=== PATIENT | male | born 1995 | race African-American/Black ===

== ENCOUNTER 2017-05-25 15:41 | Emergency (ER) | payer SELFPAY ==
[~2017-05-25] VITALS: Ht 175.3 cm; Wt 63.5 kg
[~2017-05-25 15:41] MED LIST: DOCU-109 PO; Hydrocodone Bit/Acetaminophen PO
[2017-05-25 15:48] VITALS: BP 129/78
--- NOTE | 2017-05-25 16:55 | PHYS DOC ---
Past Medical History Past Medical History: Abscess Past Surgical History: Other Additional Past Surgical Histo: pilonidal cyst Alcohol Use: None Drug Use: None Adult General Chief Complaint Chief Complaint: ABDOMINAL PAIN HPI HPI Patient is a 21 year old male who presents ambulatory to the ED complaining of intermittent abdominal pain for 2 days. It's characterized as a "sharp stabbing pain" that may be on the right middle, right upper, middle, or left side of the abdomen. It will go away and then come back. It has bothered him in the middle the night last night. He did have a small bowel movement yesterday that was hard. He states "it's, like a gas pain" but worse. He's had no nausea or vomiting. 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 He denies history of constipation. He's never had abdominal surgery. He denies fever. Patient is in good general health and does not take medications daily. Review of Systems Review of Systems Constitutional: Denies fever or chills [] Eyes: Denies change in visual acuity, redness, or eye pain [] HENT: Denies nasal congestion or sore throat [] Respiratory: Denies cough or shortness of breath [] Cardiovascular: Denies chest pain GI: As in history of present illness : Denies dysuria or hematuria [] Musculoskeletal: Denies back pain or joint pain [] Integument: Denies rash or skin lesions [] Neurologic: Denies headache, focal weakness or sensory changes [] Current Medications Current Medications Current Medications Medications (Trade) Dose Ordered Sig/Kaushik Start Time Stop Time Status Last Admin Dose Admin Magnesium Citrate (Citroma) 296 ml 1X ONCE 05/25/17 17:00 05/25/17 17:01 DC 05/25/17 16:59 296 ML Allergies Allergies Allergies Coded Allergies Type Severity Reaction Last Updated Verified No Known Drug Allergies 06/10/14 No Physical Exam Physical Exam Constitutional: Well developed, well nourished, no acute distress, non-toxic appearance. Alert, ambulatory, mentating normally, no acute distress. HENT: Normocephalic, atraumatic, bilateral external ears normal, oropharynx moist, nose normal. [] Eyes: conjunctiva normal, no discharge. [] Neck: Normal range of motion, no stridor. [] Cardiovascular:Heart rate regular rhythm, no murmur [] Lungs & Thorax: Bilateral breath sounds clear to auscultation [] Abdomen: Bowel sounds normal to "busy", increased tympany throughout, soft, nondistended, no tenderness, no masses, no pulsatile masses. Abdomen exam entirely benign. Skin: Warm, dry, no erythema, no rash. [] Extremities: No tenderness, no cyanosis, no clubbing, ROM intact, no edema. [] Neurologic: Alert and oriented X 3, normal motor function, normal sensory function, no focal deficits noted. [] Current Patient Data Vital Signs Vital Signs Date Time Temp Pulse Resp B/P (MAP) Pulse Ox O2 Delivery O2 Flow Rate FiO2 05/25/17 15:48 98.5 66 18 129/78 (95) 100 Room Air 98.5 EKG EKG [] Radiology/Procedures Radiology/Procedures Abdomen flat and upright films read by me. Nonspecific normal bowel gas pattern. There is stool and gas scattered throughout, with gas in the transverse colon [] Course & Med Decision Making Course & Med Decision Making Pertinent Labs and Imaging studies reviewed. (See chart for details) 21-year-old male complaining of intermittent sharp abdominal pain for 2 days. His abdomen exam is entirely benign. The patient has not had abdominal surgery in the past. His pain is intermittent, when it comes is severe, but when it goes is gone completely. I believe it's consistent with "gas pains". Discussed this with the patient. He states that he does believe he is constipated, he does not eat enough fiber, his stools are hard and sometimes small in quantity. We talked about fiber. We will treat him with a dose of magnesium citrate. See instructions for plan. [] Dragon Disclaimer Dragon Disclaimer This electronic medical record was generated, in whole or in part, using a voice recognition dictation system. Departure Departure Impression: Primary Impression: Gas pain Additional Impression: Constipation Disposition: 01 HOME, SELF-CARE Condition: STABLE Referrals: UNKNOWN PCP NAME (PCP) Patient Instructions: Constipation, Adult, [id number] Additional Instructions: I believe your pains are "gas pains" which results from gas in your colon when you are constipated. Constipation can be from not drinking enough fluids or not eating enough fiber. Try eating fiber cereal like raisin bran or frosted Mini- wheats once a day for breakfast or snack. Drink one half bottle of magnesium citrate now, and if you have not had good "results" within 4-6 hours, drink the second half of the bottle. This is a laxative which should make you have a bowel movement. You may purchase this over -the-counter and use as needed but it's better to avoid constipation by eating fiber every day. Problem Qualifiers TC VALENZUELA MD May 25, 2017 16:55
[2017-05-25] MEDS ORDERED: MAGNESIUM CITRATE 296 ML SOLUTION. PO ONE (17:00)
--- NOTE | 2017-05-26 09:01 | RAD ---
Indication abdominal pain for 2 days. Supine and upright films of the abdomen were obtained. No prior plain film imaging of the abdomen is available. Note is made of a previous CT examination November 02, 2012. The lung bases are clear. There is no free air. The abdominal gas pattern is normal. No organomegaly or abnormal calculi are seen. IMPRESSION: No acute or significant finding seen on plain films of the abdomen
== END 2017-05-25 17:03 | disposition home or self-care (01) ==
LOC: ER 15:41
DX: R14.1 Gas pain (principal); K59.00 Constipation, unspecified
CPT/HCPCS: 74020; 99284

== ENCOUNTER 2017-09-06 06:05 | Emergency (ER) | payer SELFPAY ==
[~2017-09-06] VITALS: Ht 172.7 cm; Wt 63.5 kg
[2017-09-06 06:06] VITALS: BP 128/77
--- NOTE | 2017-09-06 07:43 | PHYS DOC ---
Past Medical History Past Medical History: Abscess Past Surgical History: Other Additional Past Surgical Histo: pilonidal cyst Alcohol Use: None Drug Use: Marijuana Adult General Chief Complaint Chief Complaint: OVERDOSE HPI HPI Patient is a 21 year old -[place] male who presents by EMS with reports of altered mental status and suspected drug overdose. Patient's significant other called EMS after he is confused and found with red liquid over his shirt. EMS arrival, the patient was alert, oriented but uncooperative. On ED arrival, the patient's alert and oriented to person place time and situation, but does not wish to cooperate with exam and declines evaluation in the emergency department. Denies any attempted overdose. Patient requests discharge without further evaluation[] Review of Systems Review of Systems Review of systems declined by patient All other systems were reviewed and found to be within normal limits, except as documented in this note. Allergies Allergies Allergies Coded Allergies Type Severity Reaction Last Updated Verified No Known Drug Allergies 06/10/14 No Physical Exam Physical Exam Constitutional: Well developed, well nourished, no acute distress, non-toxic appearance. [] HENT: Normocephalic, atraumatic, bilateral external ears normal, oropharynx moist, no oral exudates, nose normal. [] Eyes: PERRL.. [] Neck: Normal range of motion. Lungs & Thorax: Breath sounds normal[] lubbing, ROM intact, no edema. [] Neurologic: Alert and oriented X 3, normal motor function, normal sensory function, no focal deficits noted. [] Psychologic: Affect normal, judgement normal, mood normal. [] Current Patient Data Vital Signs Vital Signs Date Time Temp Pulse Resp B/P (MAP) Pulse Ox O2 Delivery O2 Flow Rate FiO2 09/06/17 06:06 98.0 112 20 128/77 (94) 97 Room Air 98.0 Lab Values Laboratory Tests Test 09/06/17 06:19 Glucose (Fingerstick) 142 mg/dL (70-99) H EKG EKG [] Radiology/Procedures Radiology/Procedures [] Course & Med Decision Making Course & Med Decision Making Pertinent Labs and Imaging studies reviewed. (See chart for details) [Patient declined evaluation. No workup was performed or diagnosis made. Patient encouraged to follow-up with his PCP and to return to the ED should he change his mind regarding evaluation. Patient left AGAINST MEDICAL ADVICE..] Dragon Disclaimer Dragon Disclaimer This electronic medical record was generated, in whole or in part, using a voice recognition dictation system. Departure Departure Impression: Primary Impression: Left against medical advice Disposition: 07 AGAINST MEDICAL ADVICE Condition: LEFT WITHOUT BEING SEEN Referrals: NO PCP (PCP) LONNIE VILLALPANDO DO Sep 06, 2017 07:43
== END 2017-09-06 06:20 | disposition left against medical advice (07) ==
LOC: ER 06:05
DX: R41.82 Altered mental status, unspecified (principal); F12.10 Cannabis abuse, uncomplicated
CPT/HCPCS: 82962; 99283

== ENCOUNTER 2018-10-02 03:06 | Emergency (ER) | payer SELFPAY ==
[~2018-10-02] VITALS: Ht 177.8 cm; Wt 63.5 kg
[2018-10-02] MEDS ORDERED: METOCLOPRAMIDE HCL 10 MG/2 ML VIAL. IV ONE (03:45)
[2018-10-02] MEDS ORDERED: HYOSCYAMINE 0.125 MG TAB.RAPDIS PO ONE (03:45)
[2018-10-02 03:48] LABS: BILIRUBIN,URINE NEGATIVE (NEG); CLARITY,URINE CLEAR; COLOR,URINE YELLOW; NITRITE,URINE NEGATIVE (NEG); PH,URINE 7.5; PROTEIN,URINE NEGATIVE (NEG-TRACE)
[2018-10-02 03:53] LABS: BARBITURATES NEG (NEG); BENZODIAZEPINES NEG (NEG); CANNABINOIDS POS (NEG); COCAINE NEG (NEG); METHADONE NEG (NEG); OPIATES POS (NEG); PHENCYCLIDINE NEG (NEG)
[2018-10-02 03:55] LABS: BACTERIA,URINE 0 /HPF (0-FEW); RBC,URINE OCC /HPF (0-2); SQUAMOUS EPITHELIAL CELL,UR FEW /LPF
[2018-10-02 03:56] LABS: AMPHETAMINE/METHAMPHETAMINE NEG (NEG)
[2018-10-02 04:09] LABS: BASO # 0.1 x10^3/uL (0.0-0.2); BASO % 1 % (0-3); EOS # 0.1 x10^3/uL (0.0-0.7); EOS % 1 % (0-3); HEMATOCRIT 45.1 % (39.0-53.0); HEMOGLOBIN 15.7 g/dL (13.0-17.5); LYMPH % 26 % (24-48); MEAN CORPUSCULAR HEMOGLOBIN 34 pg (25-35); MEAN CORPUSCULAR HGB CONC 35 g/dL (31-37); MEAN CORPUSCULAR VOLUME 97 fL (79-100); MONO # 0.3 x10^3/uL (0.0-1.1); MONO % 4 % (0-9); NEUT # 5.2 x10^3uL (1.8-7.7); NEUT % 69 % (31-73); PLATELET COUNT 254 x10^3/uL (140-400); RED BLOOD COUNT 4.66 x10^6/uL (4.30-5.70); RED CELL DISTRIBUTION WIDTH 13.6 % (11.5-14.5); WHITE BLOOD COUNT 7.6 x10^3/uL (4.0-11.0)
--- NOTE | 2018-10-02 04:10 | PHYS DOC ---
Past Medical History Past Medical History: Abscess Past Surgical History: Other Additional Past Surgical Histo: pilonidal cyst Alcohol Use: None Drug Use: Marijuana Adult General Chief Complaint Chief Complaint: ABDOMINAL PAIN HPI HPI Patient is a 22 year old male who presents with abdominal pain. This has been present for the past 2-3 days. He describes it as achy and crampy discomfort that is moderate in intensity. Patient reports nausea and vomiting. Reports that any food causes nausea and vomiting. He is able to hold down liquids. Reports his last bowel movement was 2-3 days ago as well. He reports that he is passing flatus. Reports that the pain is diffuse. Nothing seems to make it better or worse. Reports the last used marijuana 3-4 days ago.[] Review of Systems Review of Systems Constitutional: Denies fever or chills [] Eyes: Denies change in visual acuity, redness, or eye pain [] HENT: Denies nasal congestion or sore throat [] Respiratory: Denies cough or shortness of breath [] Cardiovascular: No chest pain or palpitations[] GI: See history of present illness[] : Denies dysuria or hematuria [] Musculoskeletal: Denies back pain or joint pain [] Integument: Denies rash or skin lesions [] Neurologic: Denies headache, focal weakness or sensory changes [] Endocrine: Denies polyuria or polydipsia [] All other systems were reviewed and found to be within normal limits, except as documented in this note. Current Medications Current Medications Current Medications Medications (Trade) Dose Ordered Sig/Kaushik Start Time Stop Time Status Last Admin Dose Admin Hyoscyamine (Anaspaz) 0.125 mg ONCE ONCE 10/02/18 03:45 10/02/18 03:46 DC 10/02/18 04:05 0.125 MG Metoclopramide HCl (Reglan Vial) 10 mg 1X ONCE 10/02/18 03:45 10/02/18 03:46 DC 10/02/18 04:05 10 MG Allergies Allergies Allergies Coded Allergies Type Severity Reaction Last Updated Verified No Known Drug Allergies 06/10/14 No Physical Exam Physical Exam Constitutional: Well developed, well nourished, no acute distress, non-toxic appearance. [] HENT: Normocephalic, atraumatic, bilateral external ears normal, oropharynx moist, no oral exudates, nose normal. [] Eyes: PERRLA, EOMI, conjunctiva normal, no discharge. [] Neck: Normal range of motion, no tenderness, supple, no stridor. [] Cardiovascular:Heart rate regular rhythm, no murmur [] Lungs & Thorax: Bilateral breath sounds clear to auscultation [] Abdomen: Bowel sounds normal, soft, diffuse tenderness, no masses, no pulsatile masses. No rebound, no guarding, no rigidity. Patient is able to sit up without any difficulty. No McBurney's point tenderness[] Skin: Warm, dry, no erythema, no rash. [] Back: No tenderness, no CVA tenderness. [] Extremities: No tenderness, no cyanosis, no clubbing, ROM intact, no edema. [] Neurologic: Alert and oriented X 3, normal motor function, normal sensory function, no focal deficits noted. [] Psychologic: Affect normal, judgement normal, mood normal. [] Current Patient Data Vital Signs Vital Signs Date Time Temp Pulse Resp B/P (MAP) Pulse Ox O2 Delivery O2 Flow Rate FiO2 10/02/18 03:17 98.0 59 14 103/61 (75) 99 Room Air 98.0 Lab Values Laboratory Tests Test 10/02/18 03:20 10/02/18 04:00 Urine Collection Type Unknown Urine Color Yellow Urine Clarity Clear Urine pH 7.5 Urine Specific [place] 1.020 Urine Protein Negative mg/dL (NEG-TRACE) Urine Glucose (UA) Negative mg/dL (NEG) Urine Ketones (Stick) 40 mg/dL (NEG) Urine Blood Negative (NEG) Urine Nitrite Negative (NEG) Urine Bilirubin Negative (NEG) Urine Urobilinogen Dipstick 1.0 mg/dL (0.2 mg/dL) Urine Leukocyte Esterase Moderate (NEG) Urine RBC Occ /HPF (0-2) Urine WBC 11-20 /HPF (0-4) Urine Squamous Epithelial Cells Few /LPF Urine Bacteria 0 /HPF (0-FEW) Urine Mucus Mod /LPF Urine Opiates Screen Pos (NEG) Urine Methadone Screen Neg (NEG) Urine Barbiturates Neg (NEG) Urine Phencyclidine Screen Neg (NEG) Urine Amphetamine/Methamphetamine Neg (NEG) Urine Benzodiazepines Screen Neg (NEG) Urine Cocaine Screen Neg (NEG) Urine Cannabinoids Screen Pos (NEG) Urine Ethyl Alcohol Neg (NEG) White Blood Count 7.6 x10^3/uL (4.0-11.0) Red Blood Count 4.66 x10^6/uL (4.30-5.70) Hemoglobin 15.7 g/dL (13.0-17.5) Hematocrit 45.1 % (39.0-53.0) Mean Corpuscular Volume 97 fL (79-100) Mean Corpuscular Hemoglobin 34 pg (25-35) Mean Corpuscular Hemoglobin Concent 35 g/dL (31-37) Red Cell Distribution Width 13.6 % (11.5-14.5) Platelet Count 254 x10^3/uL (140-400) Neutrophils (%) (Auto) 69 % (31-73) Lymphocytes (%) (Auto) 26 % (24-48) Monocytes (%) (Auto) 4 % (0-9) Eosinophils (%) (Auto) 1 % (0-3) Basophils (%) (Auto) 1 % (0-3) Neutrophils # (Auto) 5.2 x10^3uL (1.8-7.7) Lymphocytes # (Auto) 2.0 x10^3/uL (1.0-4.8) Monocytes # (Auto) 0.3 x10^3/uL (0.0-1.1) Eosinophils # (Auto) 0.1 x10^3/uL (0.0-0.7) Basophils # (Auto) 0.1 x10^3/uL (0.0-0.2) Sodium Level 139 mmol/L (136-145) Potassium Level 3.5 mmol/L (3.5-5.1) Chloride Level 106 mmol/L (98-107) Carbon Dioxide Level 22 mmol/L (21-32) Anion Gap 11 (6-14) Blood Urea Nitrogen 7 mg/dL (8-26) L Creatinine 1.1 mg/dL (0.7-1.3) Estimated GFR (Cockcroft-Gault) 101.3 BUN/Creatinine Ratio 6 (6-20) Glucose Level 104 mg/dL (70-99) H Calcium Level 9.5 mg/dL (8.5-10.1) Total Bilirubin 0.8 mg/dL (0.2-1.0) Aspartate Amino Transferase (AST) 19 U/L (15-37) Alanine Aminotransferase (ALT) 21 U/L (16-63) Alkaline Phosphatase 80 U/L (46-116) Total Protein 7.3 g/dL (6.4-8.2) Albumin 4.2 g/dL (3.4-5.0) Albumin/Globulin Ratio 1.4 (1.0-1.7) Lipase 133 U/L (73-393) Laboratory Tests 10/02/18 04:00 Laboratory Tests 10/02/18 04:00 EKG EKG [] Radiology/Procedures Radiology/Procedures Acute abdominal series x-ray shows no infiltrate, no effusion, no pneumothorax, no subdiaphragmatic free air, no evidence of obstruction[] Course & Med Decision Making Course & Med Decision Making Pertinent Labs and Imaging studies reviewed. (See chart for details) ED course: Patient arrived, was placed in bed, and tolerated exam well. Patient was by mouth tolerant while in the emergency department. After return of lab and imaging findings, these were discussed with the patient voiced understanding. All questions were answered Cold decision making: There is no evidence of obstruction or perforation. Patient does not clinically present as appendicitis, has a normal white count despite 2 days of discomfort and no McBurney's point tenderness and no peritoneal findings. No evidence of pyelonephritis. Patient has urinary tract infection which will be treated as an outpatient. This may be due to a combination of opioid as well as THC use resulting in the nausea and vomiting along with the decreased bowel movements. We'll have patient increase fiber in his diet and addressed the nausea with antiemetics.[] Dragon Disclaimer Dragon Disclaimer This electronic medical record was generated, in whole or in part, using a voice recognition dictation system. Departure Departure Impression: Primary Impression: Nausea and vomiting Additional Impressions: Abdominal pain Urinary tract infection Disposition: HOME, SELF-CARE Condition: GOOD Referrals: NO PCP (PCP) Patient Instructions: Abdominal Pain (Nonspecific), Nausea and Vomiting, Urinary Tract Infection Additional Instructions: Drink plenty of fluids. Avoid fatty foods, milk, and pepper for the next 2 days. For the next 2 days eat a diet rich in carbohydrates with foods such as bananas, rice, applesauce, and toast. Follow-up with your regular doctor in 2 days. If you do not have a regular doctor a list of local low-cost clinics will be provided for you. When you are feeling better, increase the fiber in your diet. This can be done by adding a breakfast cereal with "bran" or "fiber" in the name. Return to the ER if worsening pain, unable to tolerate liquids, or any other concerns. Scripts Metoclopramide Hcl (REGLAN) 10 Mg Tablet 10 MG PO QIDACHS, #30 TAB 0 Refills Prov: JEAN MENA DO 10/02/18 Hyoscyamine Sulfate (LEVSIN) 0.125 Mg Tablet 0.125 MG PO QID, #30 TAB Prov: JEAN MENA DO 10/02/18 Cephalexin (CEPHALEXIN) 500 Mg Tablet 1 TAB PO TID, #30 TAB Prov: JEAN MENA DO 10/02/18 Problem Qualifiers Primary Impression: Nausea and vomiting Vomiting type: unspecified Vomiting Intractability: non-intractable Qualified Codes: R11.2 - Nausea with vomiting, unspecified Additional Impressions: Abdominal pain Abdominal location: generalized Qualified Codes: R10.84 - Generalized abdominal pain Urinary tract infection Urinary tract infection type: site unspecified Hematuria presence: without hematuria Qualified Codes: N39.0 - Urinary tract infection, site not specified JEAN MENA DO Oct 02, 2018 04:10
[2018-10-02 04:18] LABS: CALCIUM 9.5 mg/dL (8.5-10.1); CREATININE 1.1 mg/dL (0.7-1.3); GFR 101.3; POTASSIUM 3.5 mmol/L (3.5-5.1)
[2018-10-02 04:23] LABS: ALBUMIN 4.2 g/dL (3.4-5.0); ALBUMIN/GLOBULIN RATIO 1.4 (1.0-1.7); TOTAL BILIRUBIN 0.8 mg/dL (0.2-1.0); TOTAL PROTEIN 7.3 g/dL (6.4-8.2)
[2018-10-02] MEDS ORDERED: CEPH500T PO (04:52)
[2018-10-02] MEDS ORDERED: METO10TA81 PO (04:52)
[2018-10-02] MEDS ORDERED: HYOS0.1264 PO (04:52)
[2018-10-02 05:00] VITALS: BP 103/62
--- NOTE | 2018-10-02 08:16 | RAD ---
ACUTE ABDOMEN SERIES History: Vomiting, abdominal pain. Comparison: KUB, May 25, 2017. Findings: Frontal chest and supine and upright views of the abdomen. Cardiomediastinal silhouette is normal. There is no pleural effusion or pneumothorax. The lungs are clear. No pneumoperitoneum is identified. No dilated air-filled loops of bowel are seen. Bowel gas pattern is nonobstructive. No organomegaly. Bones unremarkable. IMPRESSION: 1. No acute cardiopulmonary process. 2. Nonobstructive bowel gas pattern. Electronically signed by: Asim Honeycutt MD (10/02/2018 8:12 AM) [id number]
== END 2018-10-02 05:08 | disposition home or self-care (01) ==
LOC: ER 03:06
DX: N39.0 Urinary tract infection, site not specified (principal); R11.2 Nausea with vomiting, unspecified; R10.84 Generalized abdominal pain
CPT/HCPCS: 36415; 74022; 80053; 80307; 81001; 83690; 85025; 87086; 96374; 99284; J2765

== ENCOUNTER 2020-12-27 10:18 | Emergency (ER) | payer SELFPAY ==
[~2020-12-27] VITALS: Ht 177.8 cm; Wt 65.0 kg
[~2020-12-27 10:18] MED LIST changes: +CEPH500T PO; +HYOS0.1264 PO; +METO10TA81 PO
[2020-12-27] MEDS ORDERED: ONDANSETRON PF 4 MG/2 ML VIAL. IVP ONE (10:45)
[2020-12-27] MEDS ORDERED: IV NORMAL SALINE 1000ML BAG 1,000 ML IV ONE ×3 (10:45→12:30)
--- NOTE | 2020-12-27 10:48 | PHYS DOC ---
Past Medical History Past Medical History: No Pertinent History Past Surgical History: Other Additional Past Surgical Histo: pilonidal cyst Smoking Status: Former Smoker Alcohol Use: None Drug Use: Marijuana General Adult EDM: Chief Complaint: NAUSEA/VOMITING/DIARRHA HPI: HPI: Patient is a 25 year old male who presented to ER due to nausea vomiting and abdominal cramping. Patient said he is in withdrawal from cough syrup that includes codeine. His last dose was 2 days ago. Patient denies suicidal ideation, denies homicidal ideation. Patient denies any chest pain, no trouble breathing. Patient denies any cough or fever. Patient also admitted marijuana usage. Review of Systems: Review of Systems: Constitutional: Denies fever or chills. [] Eyes: Denies change in visual acuity. [] HENT: Denies nasal congestion or sore throat. [] Respiratory: Denies cough or shortness of breath. [] Cardiovascular: Denies chest pain or edema. [] GI: Positive for abdominal cramping, nausea vomiting, no diarrhea. : Denies dysuria. [] Musculoskeletal: Denies back pain or joint pain. [] Integument: Denies rash. [] Neurologic: Denies headache, focal weakness or sensory changes. [] Endocrine: Denies polyuria or polydipsia. [] Lymphatic: Denies swollen glands. [] Psychiatric: Denies depression or anxiety. No suicidal ideation, no homicide ideation. Heart Score: C/O Chest Pain: N/A Risk Factors: Risk Factors: DM, Current or recent (<one month) smoker, HTN, HLP, family history of CAD, obesity. Risk Scores: Score 0 - 3: 2.5% MACE over next 6 weeks - Discharge Home Score 4 - 6: 20.3% MACE over next 6 weeks - Admit for Clinical Observation Score 7 - 10: 72.7% MACE over next 6 weeks - Early Invasive Strategies Current Medications: Current Medications Medications (Trade) Dose Ordered Sig/Kaushik Start Time Stop Time Status Last Admin Dose Admin Ondansetron HCl (Zofran) 4 mg 1X ONCE 12/27/20 10:45 12/27/20 10:46 DC Sodium Chloride 1,000 ml @ 1,000 mls/hr 1X ONCE 12/27/20 10:45 12/27/20 11:44 Allergies: Allergies: Allergies Coded Allergies Type Severity Reaction Last Updated Verified No Known Drug Allergies 06/10/14 No Physical Exam: PE: Constitutional: Well developed, well nourished, no acute distress, non-toxic appearance. [] HENT: Normocephalic, atraumatic, bilateral external ears normal, oropharynx moist, no oral exudates, nose normal. [] Eyes: PERRLA, EOMI, conjunctiva normal, no discharge. [] Neck: Normal range of motion, no tenderness, supple, no stridor. [] Cardiovascular:Heart rate regular rhythm, no murmur [] Lungs & Thorax: Bilateral breath sounds clear to auscultation [] Abdomen: Bowel sounds normal, soft, no tenderness, no masses, no pulsatile masses. [] Skin: Warm, dry, no erythema, no rash. [] Back: No tenderness, no CVA tenderness. [] Extremities: No tenderness, no cyanosis, no clubbing, ROM intact, no edema. [] Neurologic: Alert and oriented X 3, normal motor function, normal sensory function, no focal deficits noted. [] Psychologic: Affect normal, judgement normal, mood normal. [] Current Patient Data: Labs: Laboratory Tests Test 12/27/20 10:47 12/27/20 11:40 White Blood Count 6.9 x10^3/uL Red Blood Count 4.95 x10^6/uL Hemoglobin 16.5 g/dL Hematocrit 47.8 % Mean Corpuscular Volume 97 fL Mean Corpuscular Hemoglobin 33 pg Mean Corpuscular Hemoglobin Concent 35 g/dL Red Cell Distribution Width 13.6 % Platelet Count 309 x10^3/uL Neutrophils (%) (Auto) 79 % Lymphocytes (%) (Auto) 15 % Monocytes (%) (Auto) 5 % Eosinophils (%) (Auto) 0 % Basophils (%) (Auto) 1 % Neutrophils # (Auto) 5.5 x10^3/uL Lymphocytes # (Auto) 1.0 x10^3/uL Monocytes # (Auto) 0.3 x10^3/uL Eosinophils # (Auto) 0.0 x10^3/uL Basophils # (Auto) 0.1 x10^3/uL Sodium Level 138 mmol/L Potassium Level 3.2 mmol/L Chloride Level 103 mmol/L Carbon Dioxide Level 22 mmol/L Anion Gap 13 Blood Urea Nitrogen 7 mg/dL Creatinine 1.3 mg/dL Estimated GFR (Cockcroft-Gault) 81.4 BUN/Creatinine Ratio 5 Glucose Level 145 mg/dL Calcium Level 9.6 mg/dL Magnesium Level 1.7 mg/dL Total Bilirubin 1.0 mg/dL Aspartate Amino Transf (AST/SGOT) 18 U/L Alanine Aminotransferase (ALT/SGPT) 18 U/L Alkaline Phosphatase 89 U/L Total Protein 7.9 g/dL Albumin 4.2 g/dL Albumin/Globulin Ratio 1.1 Lipase 74 U/L Salicylates Level 3.7 mg/dL Salicylate Last Dose Date Unknown Salicylate Last Dose Time Unknown Acetaminophen Level < 2 mcg/ml Acetaminophen Last Dose Date Unknown Acetaminophen Last Dose Time Unknown Ethyl Alcohol Level < 10 mg/dL Urine Collection Type Void Urine Color Yellow Urine Clarity Cloudy Urine pH 8.5 Urine Specific [place] 1.025 Urine Protein 30 mg/dL Urine Glucose (UA) Negative mg/dL Urine Ketones (Stick) >=80 mg/dL Urine Blood Negative Urine Nitrite Negative Urine Bilirubin Negative Urine Urobilinogen Dipstick 0.2 mg/dL Urine Leukocyte Esterase Small Urine RBC 0 /HPF Urine WBC 5-10 /HPF Urine Squamous Epithelial Cells Few /LPF Urine Bacteria Few /HPF Urine Mucus Mod /LPF Urine Opiates Screen Pos Urine Methadone Screen Neg Urine Barbiturates Neg Urine Phencyclidine Screen Neg Urine Amphetamine/Methamphetamine Neg Urine Benzodiazepines Screen Neg Urine Cocaine Screen Neg Urine Cannabinoids Screen Pos Urine Ethyl Alcohol Neg Current Medications Medications (Trade) Dose Ordered Sig/Kaushik Route PRN Reason Start Time Stop Time Status Last Admin Dose Admin Ondansetron HCl (Zofran) 4 mg 1X ONCE IVP 12/27/20 10:45 12/27/20 10:46 DC 12/27/20 10:51 Sodium Chloride 1,000 ml @ 1,000 mls/hr 1X ONCE IV 12/27/20 10:45 12/27/20 11:44 DC 12/27/20 10:51 Sodium Chloride 1,000 ml @ 1,000 mls/hr 1X ONCE IV 12/27/20 10:45 12/27/20 11:44 DC 12/27/20 10:51 Potassium Chloride (Klor-Con) 40 meq 1X ONCE PO 12/27/20 11:45 12/27/20 11:46 DC 12/27/20 12:37 Magnesium Sulfate 50 ml @ 25 mls/hr 1X ONCE IV 12/27/20 11:45 12/27/20 13:44 DC 12/27/20 12:36 Sodium Chloride 1,000 ml @ 1,000 mls/hr 1X ONCE IV 12/27/20 12:30 12/27/20 13:29 DC 12/27/20 12:42 Vital Signs: Vital Signs Date Time Temp Pulse Resp B/P (MAP) Pulse Ox O2 Delivery O2 Flow Rate FiO2 12/27/20 10:25 97.8 47 16 111/55 (73) 99 Room Air 97.8 EKG: EKG: [] Radiology/Procedures: Radiology/Procedures: [] Course & Med Decision Making: Course & Med Decision Making Pertinent Labs and Imaging studies reviewed. (See chart for details) Patient is a 25-year-old male who presented to ER due to nausea vomiting and abdominal cramping, he is in narcotic withdrawal. Patient was given IV fluid and IV nausea medication. His potassium level was low, patient was given supplemental potassium p.o. in the ER, patient feel much better, he will be discharged home, need to follow-up with his family physician for reevaluation. Patient was given nausea medications to take as needed. Patient is amenable to plan of care. Dragon Disclaimer: Dragmark Disclaimer: This electronic medical record was generated, in whole or in part, using a voice recognition dictation system. Departure Departure Impression: Primary Impression: Acute narcotic withdrawal Additional Impression: Hypokalemia Disposition: 01 DC HOME SELF CARE/HOMELESS Condition: IMPROVED Referrals: NO PCP (PCP) Please follow up with [facility] this week. [address], [address] [place] [address] Phone number: [phone] Patient Instructions: Hypokalemia, Narcotic Withdrawal Additional Instructions: Thank you for visiting our Emergency Department. We appreciate you trusting us with your care. If any additional problems come up don't hesitate to return to visit us. Please follow up with your primary care provider so they can plan additional care if needed and know about the problem that you had. If symptoms worsen come back to the Emergency Department. Any concerning symptoms that start such as chest pain, shortness of air, weakness or numbness on one side of the body, running high fevers or any other concerning symptoms return to the ER. Scripts Ondansetron Hcl (ZOFRAN) 4 Mg Tablet 1 TAB PO Q6HRS PRN for NAUSEA, #20 TAB Prov: LOAN GALVEZ DO 12/27/20 LOAN GALVEZ DO Dec 27, 2020 10:48
[2020-12-27 11:00] LABS: BASO # 0.1 x10^3/uL (0.0-0.2); BASO % 1 % (0-3); EOS % 0 % (0-3); HEMATOCRIT 47.8 % (39.0-53.0); HEMOGLOBIN 16.5 g/dL (13.0-17.5); LYMPH % 15 % (24-48); MEAN CORPUSCULAR HEMOGLOBIN 33 pg (25-35); MEAN CORPUSCULAR HGB CONC 35 g/dL (31-37); MEAN CORPUSCULAR VOLUME 97 fL (79-100); MONO # 0.3 x10^3/uL (0.0-1.1); MONO % 5 % (0-9); NEUT # 5.5 x10^3/uL (1.8-7.7); NEUT % 79 % (31-73); PLATELET COUNT 309 x10^3/uL (140-400); RED BLOOD COUNT 4.95 x10^6/uL (4.30-5.70); RED CELL DISTRIBUTION WIDTH 13.6 % (11.5-14.5); WHITE BLOOD COUNT 6.9 x10^3/uL (4.0-11.0)
[2020-12-27 11:15] LABS: CALCIUM 9.6 mg/dL (8.5-10.1); CREATININE 1.3 mg/dL (0.7-1.3); GFR 81.4; POTASSIUM 3.2 mmol/L (3.5-5.1)
[2020-12-27 11:19] LABS: ACETAMIN < 2 mcg/ml (10-30); ETHANOL < 10 mg/dL (0-10); SALIC 3.7 mg/dL (2.8-20.0)
[2020-12-27 11:20] LABS: ALBUMIN 4.2 g/dL (3.4-5.0); ALBUMIN/GLOBULIN RATIO 1.1 (1.0-1.7); MAGNESIUM 1.7 mg/dL (1.8-2.4); TOTAL PROTEIN 7.9 g/dL (6.4-8.2)
[2020-12-27] MEDS ORDERED: POTASSIUM CHLORIDE 10 MEQ TABLET.ER. PO ONE (11:45)
[2020-12-27] MEDS ORDERED: MAGNESIUM SULFATE 2GM 50 ML IV ONE (11:45)
[2020-12-27 12:02] LABS: BILIRUBIN,URINE NEGATIVE (NEG); CLARITY,URINE CLOUDY; COLOR,URINE YELLOW; NITRITE,URINE NEGATIVE (NEG); PH,URINE 8.5 (<5.0-8.0); PROTEIN,URINE 30 mg/dL (NEG-TRACE); UROBILINOGEN,URINE 0.2 mg/dL (0.2 mg/dL)
[2020-12-27 12:09] LABS: AMPHETAMINE/METHAMPHETAMINE NEG (NEG); BARBITURATES NEG (NEG); BENZODIAZEPINES NEG (NEG); CANNABINOIDS POS (NEG); COCAINE NEG (NEG); METHADONE NEG (NEG); OPIATES POS (NEG); PHENCYCLIDINE NEG (NEG)
[2020-12-27 12:15] LABS: BACTERIA,URINE FEW /HPF (0-FEW); RBC,URINE 0 /HPF (0-2)
[2020-12-27 14:00] VITALS: BP 95/53
[2020-12-27] MEDS ORDERED: ONDA4TAB7 PO (14:27)
== END 2020-12-27 14:37 | disposition home or self-care (01) ==
LOC: ER 10:18
DX: F11.23 Opioid dependence with withdrawal (principal); E87.6 Hypokalemia; R11.2 Nausea with vomiting, unspecified; R05 Cough; R10.9 Unspecified abdominal pain; F12.90 Cannabis use, unspecified, uncomplicated; Z87.891 Personal history of nicotine dependence; Z98.890 Other specified postprocedural states
CPT/HCPCS: 36415; 80053; 80307; 80329; 81001; 83690; 83735; 85025; 87086; 96361; 96365; 96375; 99285; G0480; J2405; J3475; J7030

== ENCOUNTER 2021-01-24 20:20 | Emergency (ER) | payer SELFPAY ==
[~2021-01-24] VITALS: Ht 175.3 cm; Wt 61.4 kg
[~2021-01-24 20:20] MED LIST changes: +ONDA4TAB7 PO
[2021-01-24] MEDS ORDERED: IV NORMAL SALINE 1000ML BAG 1,000 ML IV ONE (21:45)
[2021-01-24] MEDS ORDERED: FAMOTIDINE 20 MG/2 ML VIAL IVP ONE (21:45)
[2021-01-24] MEDS ORDERED: ONDANSETRON PF 4 MG/2 ML VIAL. IVP ONE (21:45)
--- NOTE | 2021-01-24 21:48 | PHYS DOC ---
Past Medical History Past Medical History: No Pertinent History Past Surgical History: Other Additional Past Surgical Histo: pilonidal cyst Smoking Status: Former Smoker Alcohol Use: None Drug Use: Marijuana General Adult EDM: Chief Complaint: SHORTNESS OF BREATH HPI: HPI: 25-year-old male presents the ED with complaints of "bloated stomach stuff," reports no bowel movement for 4 days "I need something to go," with associated abdominal bloating that causes shortness of breath and 1-2 episodes of vomiting several days ago. Has been tested multiple times for Covid and refused Covid testing due to pain with testing. Reports decreased oral intake. Told RN he was unemployed but told me he works for [employer]. Patient states he was discharged from senior living this past week and is on house arrest. Reports no marijuana use in the past 7 days despite smelling of marijuana "I don't know why." Review of Systems: Review of Systems: Constitutional: Denies fever or chills. [] Eyes: Denies change in visual acuity. [] HENT: Denies nasal congestion or sore throat. [] Respiratory: Denies cough or shortness of breath or hemoptysis Cardiovascular: Denies chest pain or edema or syncope GI: Denies melena, hematochezia or diarrhea. [] : Denies dysuria or hematuria Musculoskeletal: Denies back pain or joint pain or leg swelling Integument: Denies rash or diaphoresis Neurologic: Denies headache, neck pain, focal weakness or sensory changes. [] Endocrine: Denies polyuria or polydipsia. [] Lymphatic: Denies swollen glands. [] Psychiatric: Denies depression or anxiety. [] Heart Score: C/O Chest Pain: No Risk Factors: Risk Factors: DM, Current or recent (<one month) smoker, HTN, HLP, family history of CAD, obesity. Risk Scores: Score 0 - 3: 2.5% MACE over next 6 weeks - Discharge Home Score 4 - 6: 20.3% MACE over next 6 weeks - Admit for Clinical Observation Score 7 - 10: 72.7% MACE over next 6 weeks - Early Invasive Strategies Allergies: Allergies: Allergies Coded Allergies Type Severity Reaction Last Updated Verified No Known Drug Allergies 06/10/14 No Physical Exam: PE: Constitutional: Well developed, well nourished, no acute distress, non-toxic appearance, smells of marijuana - becomes upset/angry over being asked this HENT: Normocephalic, atraumatic, Eyes: EOMI, conjunctiva normal, no discharge. Neck: Normal range of motion, supple, Cardiovascular: S1/2 present, bradycardia Lungs & Thorax: Speaking in full sentences, bilateral equal chest rise, no tachypnea or increased work of breathing Abdomen: soft, no tenderness, Skin: Warm, dry, no erythema, no rash. [] Back: No tenderness, no CVA tenderness. [] Extremities: No tenderness, no cyanosis, no lower extremity edema, ankle boot on LE Neurologic: Alert and oriented X 3, normal motor function, normal sensory function, no focal deficits noted. [] Psychologic: Affect normal, judgement normal, mood normal. [] EKG: EKG: Sinus rhythm 54 bpm, bradycardia, normal intervals, T wave inversions in V3 through V6, no ST elevations or ST depressions, no chest pain + LVH Has bradycardia 45 bpm, no axis deviation, normal intervals, T wave inversion V2-V6, no AVE/STD, no chest pain + LVH Radiology/Procedures: Radiology/Procedures: []IMAGING REPORT Signed PATIENT: CYNDIE CAIN ACCOUNT: [id number] : 1995 LOCATION: ER AGE: 25 SEX: M EXAM STATUS: REG ER ORD. PHYSICIAN: MANJU VILLAVICENCIO DO REASON: soa, vomiting PROCEDURE: ACUTE ABDOMEN SERIES Exam: Acute abdominal series INDICATION: Short of air, vomiting TECHNIQUE: Frontal view of the chest with upright and supine views the abdomen Comparisons: None FINDINGS: The cardiomediastinal silhouette and pulmonary vessels are within normal limits. The lung and pleural spaces are clear. Air and stool are noted throughout the colon to level the rectum in a nonobstructive bowel gas pattern. No suspicious masses or calcifications. Visualized osseous structures are unremarkable. IMPRESSION: 1. No acute cardiopulmonary process. 2. Nonobstructive bowel gas pattern. Electronically signed by: Jeanie Harvey MD (01/24/2021 11:07 PM) [facility] DICTATED and SIGNED BY: JEANIE HARVEY MD DATE: 01/24/21 [id number] Impression: PERC rule for pulmonary embolus 0 criteria No need for further workup, as <2% chance of PE. If no criteria are positive and clinicians pre-test probability is <15%, PERC Rule criteria are satisfied. Course & Med Decision Making: Course & Med Decision Making Pertinent Labs and Imaging studies reviewed. (See chart for details) Concern for constipation with abdominal bloating causing soa and few episodes of vomiting-no active in ed. EKG with asymptomatic bradycardia and LVH-denies any active chest pain or dypsnea. Pt not confused with no neuro deficits. Will discharge home with strict ED return precautions were given for chest pressure, dyspnea, abscess, neurologic deficits or syncope. Encouraged urgent outpatient follow-up with PMD and cardiology-to evaluate sinus bradycardia. Life- threatening processes were considered but are low suspicion at this time, given history, physical exam and ED workup. Pt was educated on all prescription medications and adverse effects. All patient's questions were answered and pt was stable at time of discharge. Life/limb-threatening differential includes but is not limited to, acute hale ry syndrome/myocardial infarction, Boerhaave's, DKA, gastrointestinal bleeding, intracranial hemorrhage, ischemic bowel, meningitis, sepsis, surgical abdomen (AAA), toxidrome (drug over/overdose/carbon monoxide, etc), ovarian/testicular torsion, trauma, or infection/sepsis. I spoken with the patient and her caregivers. I explained the patient's condition, diagnoses and treatment plan based on the information available to me at this time. I have answered the patient and her caregiver's questions and addressed any concerns. The patient and her caregivers have a good understanding of patient's diagnosis, condition and treatment plan as can be expected at this point. Vital signs have been stable. Patient's condition is stable and appropriate for discharge from the emergency department. Patient will pursue further outpatient evaluation with primary care physician or other designated or consulting physician as outlined in the discharge instructions. The patient and/or caregivers are agreeable to this plan of care and follow-up instructions have been explained in detail. The patient and/or caregivers have received these instructions in written form and have expressed an understanding of the discharge instructions. The patient and/or caregivers are aware that any significant change of condition or worsening of symptoms should prompt immediate return to this or the closest emergency department or call to 911. Mariposa Disclaimer: Mariposa Disclaimer: This electronic medical record was generated, in whole or in part, using a voice recognition dictation system. Departure Departure Impression: Primary Impression: Constipation Additional Impressions: Vomiting Sinus bradycardia by electrocardiogram Disposition: 01 DC HOME SELF CARE/HOMELESS Condition: STABLE Referrals: NO PCP (PCP) Follow-up in 3 to 5 days FOLLOW UP WITH FAMILY MEDICINE: Family Medicine Address: [address] [place] [address] Patient Instructions: Bradycardia, Constipation, Adult, Nausea and Vomiting Additional Instructions: FOLLOW UP WITH CARDIOLOGY: Nonemergent evaluation for sinus bradycardia [facility] Address: [address] [place] [address] Scripts Ondansetron (ONDANSETRON ODT) 4 Mg Tab.rapdis 1 TAB PO PRN Q6-8HRS, #15 TAB Prov: MANJU VILLAVICENCIO DO 01/25/21 Magnesium Citrate (MAGNESIUM CITRATE) 296 Ml Solution 296 ML PO ONCE, #296 ML Drink half a bottle every 12 hours as needed for constipation Prov: MANJU VILLAVICENCIO DO 01/25/21 MANJU VILLAVICENCIO DO Jan 24, 2021 21:47
[2021-01-24 22:07] LABS: BASO % 1 % (0-3); EOS % 0 % (0-3); HEMATOCRIT 49.7 % (39.0-53.0); LYMPH # 1.6 x10^3/uL (1.0-4.8); LYMPH % 20 % (24-48); MEAN CORPUSCULAR HEMOGLOBIN 33 pg (25-35); MEAN CORPUSCULAR HGB CONC 34 g/dL (31-37); MEAN CORPUSCULAR VOLUME 96 fL (79-100); MONO # 0.5 x10^3/uL (0.0-1.1); MONO % 7 % (0-9); NEUT # 5.6 x10^3/uL (1.8-7.7); NEUT % 72 % (31-73); PLATELET COUNT 397 x10^3/uL (140-400); RED BLOOD COUNT 5.16 x10^6/uL (4.30-5.70); RED CELL DISTRIBUTION WIDTH 13.4 % (11.5-14.5); WHITE BLOOD COUNT 7.8 x10^3/uL (4.0-11.0)
[2021-01-24 22:20] LABS: CALCIUM 10.1 mg/dL (8.5-10.1); CREATININE 1.2 mg/dL (0.7-1.3); GFR 89.3; POTASSIUM 3.3 mmol/L (3.5-5.1)
[2021-01-24 22:26] LABS: ALBUMIN 4.8 g/dL (3.4-5.0); ALBUMIN/GLOBULIN RATIO 1.3 (1.0-1.7); MAGNESIUM 2.5 mg/dL (1.8-2.4); TOTAL BILIRUBIN 1.1 mg/dL (0.2-1.0); TOTAL PROTEIN 8.6 g/dL (6.4-8.2)
--- NOTE | 2021-01-24 22:57 | EKG ---
[facility] [address] [place] [address] Test Date: 2021-01-24 Test Time: 21:40:54 Pat Name: CYNDIE CAIN Department: Room: Gender: M Bread Baker: : 1995 Requested By: MANJU VILLAVICENCIO Order Number: [id number] Reading MD: Measurements Intervals [place] Rate: 54 P: 51 NE: 118 QRS: 79 QRSD: 88 T: 61 QT: 450 QTc: 433 Interpretive Statements SINUS RHYTHM ATRIAL PREMATURE COMPLEX(ES) INCOMPLETE RIGHT BUNDLE BRANCH BLOCK T ABNORMALITY IN ANTERIOR LEADS ABNORMAL ECG RI6.02 No previous ECG available for comparison
--- NOTE | 2021-01-24 23:09 | RAD ---
Exam: Acute abdominal series INDICATION: Short of air, vomiting TECHNIQUE: Frontal view of the chest with upright and supine views the abdomen Comparisons: None FINDINGS: The cardiomediastinal silhouette and pulmonary vessels are within normal limits. The lung and pleural spaces are clear. Air and stool are noted throughout the colon to level the rectum in a nonobstructive bowel gas patter n. No suspicious masses or calcifications. Visualized osseous structures are unremarkable. IMPRESSION: 1. No acute cardiopulmonary process. 2. Nonobstructive bowel gas pattern. Electronically signed by: Jeanie Andres MD (01/24/2021 11:07 PM) [facility]
[2021-01-25] MEDS ORDERED: IV NORMAL SALINE 1000ML BAG 1,000 ML IV ONE (00:30)
[2021-01-25] MEDS ORDERED: KETOROLAC 15 MG/ML VIAL. IVP ONE (02:00)
--- NOTE | 2021-01-25 02:18 | EKG ---
[facility] [address] [place] [address] Test Date: 2021-01-25 Test Time: 02:09:16 Pat Name: CYNDIE CAIN Department: Room: Gender: M [employer] Specialist: : 1995 Requested By: MANJU VILLAVICENCIO Order Number: [id number] Reading MD: Measurements Intervals [place] Rate: 45 P: 65 TN: 128 QRS: 78 QRSD: 92 T: 55 QT: 480 QTc: 417 Interpretive Statements SINUS BRADYCARDIA T ABNORMALITY IN ANTERIOR LEADS ABNORMAL ECG RI6.02 No previous ECG available for comparison
[2021-01-25 04:32] VITALS: BP 103/57
[2021-01-25] MEDS ORDERED: ONDA4TAB12 PO (04:35)
[2021-01-25] MEDS ORDERED: MAGN296S68 PO (04:35)
== END 2021-01-25 04:44 | disposition home or self-care (01) ==
LOC: ER 20:20
DX: K59.00 Constipation, unspecified (principal); R11.10 Vomiting, unspecified; R00.1 Bradycardia, unspecified; Z87.891 Personal history of nicotine dependence
CPT/HCPCS: 36415; 74022; 80053; 83690; 83735; 84484; 85025; 85379; 93005; 96361; 96374; 96375; 99285; J1885; J2405; J3490; J7030

== ENCOUNTER 2021-01-28 12:41 | Emergency (ER) | payer SELFPAY ==
[~2021-01-28] VITALS: Ht 175.3 cm; Wt 63.6 kg
[~2021-01-28 12:41] MED LIST changes: +MAGN296S68 PO; +ONDA4TAB12 PO
[2021-01-28] MEDS ORDERED: IV NORMAL SALINE 1000ML BAG 1,000 ML IV ONE (13:15)
[2021-01-28] MEDS ORDERED: FAMOTIDINE 20 MG/2 ML VIAL IVP ONE (13:15)
[2021-01-28] MEDS ORDERED: ONDANSETRON PF 4 MG/2 ML VIAL. IVP ONE (13:15)
[2021-01-28 13:16] LABS: BASO # 0.1 x10^3/uL (0.0-0.2); BASO % 1 % (0-3); EOS % 0 % (0-3); HEMATOCRIT 45.9 % (39.0-53.0); HEMOGLOBIN 16.2 g/dL (13.0-17.5); LYMPH # 1.8 x10^3/uL (1.0-4.8); LYMPH % 25 % (24-48); MEAN CORPUSCULAR HEMOGLOBIN 33 pg (25-35); MEAN CORPUSCULAR HGB CONC 35 g/dL (31-37); MEAN CORPUSCULAR VOLUME 94 fL (79-100); MONO # 0.4 x10^3/uL (0.0-1.1); MONO % 6 % (0-9); NEUT % 68 % (31-73); PLATELET COUNT 359 x10^3/uL (140-400); RED BLOOD COUNT 4.87 x10^6/uL (4.30-5.70); RED CELL DISTRIBUTION WIDTH 12.9 % (11.5-14.5); WHITE BLOOD COUNT 7.3 x10^3/uL (4.0-11.0)
[2021-01-28 13:23] LABS: BILIRUBIN,URINE SMALL (NEG); CLARITY,URINE CLEAR; COLOR,URINE AMBER; NITRITE,URINE NEGATIVE (NEG); PROTEIN,URINE 30 mg/dL (NEG-TRACE)
--- NOTE | 2021-01-28 13:23 | PHYS DOC ---
Past Medical History Past Medical History: No Pertinent History Past Surgical History: Other Additional Past Surgical Histo: pilonidal cyst Smoking Status: Light Tobacco Smoker Additional Information: SMOKES BLACK & MILD EVERY DAY Alcohol Use: None Drug Use: Marijuana General Adult EDM: Chief Complaint: GI PROBLEM HPI: HPI: Patient is a 25 year old male with no significant medical history who presents to the ED today complaining of nausea, vomiting and 6 out of 10 generalized abdominal pain, symptoms have been going on initially he stated 1 week then later retracted and stated symptoms have been going on for 1-1/2 weeks. Patient states he noted some red-black stuff in his vomit today. He states he does not have any diarrhea yet. Describes abdominal pain as sharp and constant. Denies anything relieving the pain though he states has been taking codeine that does not belong to him. He states he does not want to be tested for Covid because he lives by himself and tests himself frequently. He latter stated he lives with his girlfriend and they were all tested and are negative. Denies any fever. Denies any cough or congestion. He states has been seen in multiple EDs for his symptoms. He states he was at [facility] 1-1/2 weeks ago and they could not find anything wrong with him. He states he was in our ED 4 days ago for the same complaint. Denies any drug use, denies any alcohol use. When I asked him if he can give us any urine, he states he is very dehydrated he does not have any urine. Last time he was in the ED 4 days ago it was documented he was smelling marijuana and when asked he stated he does not know why he was smelling marijuana but does not use it Review of Systems: Review of Systems: Constitutional: Denies fever or chills. [] Eyes: Denies change in visual acuity. [] HENT: Denies nasal congestion or sore throat. [] Respiratory: Denies cough or shortness of breath. [] Cardiovascular: Denies chest pain or edema. [] GI: Reports abdominal pain with nausea and vomiting, denies bloody stools or diarrhea. [] : Denies dysuria. [] Musculoskeletal: Denies back pain or joint pain. [] Integument: Denies rash. [] Neurologic: Denies headache, focal weakness or sensory changes. [] Psychiatric: Denies depression or anxiety. [] Heart Score: C/O Chest Pain: N/A Risk Factors: Risk Factors: DM, Current or recent (<one month) smoker, HTN, HLP, family history of CAD, obesity. Risk Scores: Score 0 - 3: 2.5% MACE over next 6 weeks - Discharge Home Score 4 - 6: 20.3% MACE over next 6 weeks - Admit for Clinical Observation Score 7 - 10: 72.7% MACE over next 6 weeks - Early Invasive Strategies Current Medications: Current Medications Medications (Trade) Dose Ordered Sig/Kaushik Start Time Stop Time Status Last Admin Dose Admin Famotidine (Pepcid Vial) 20 mg 1X ONCE 01/28/21 13:15 01/28/21 13:16 UNV Ondansetron HCl (Zofran) 4 mg 1X ONCE 01/28/21 13:15 01/28/21 13:16 UNV Sodium Chloride 1,000 ml @ 1,000 mls/hr 1X ONCE 01/28/21 13:15 01/28/21 14:14 UNV Allergies: Allergies: Allergies Coded Allergies Type Severity Reaction Last Updated Verified No Known Drug Allergies 06/10/14 No Physical Exam: PE: Constitutional: Well developed, well nourished, no acute distress, non-toxic appearance. [] HENT: Normocephalic, atraumatic, bilateral external ears normal, oropharynx moist, no oral exudates, nose normal. [] Eyes: PERRLA, EOMI, conjunctiva normal, no discharge. [] Neck: Normal range of motion, no tenderness, supple, no stridor. [] Cardiovascular:Heart rate regular rhythm, no murmur [] Lungs & Thorax: Bilateral breath sounds clear to auscultation [] Abdomen: Bowel sounds normal, soft, no tenderness, no masses, no pulsatile masses. [] Skin: Warm, dry, no erythema, no rash. [] Back: No tenderness, no CVA tenderness. [] Extremities: No tenderness, no cyanosis, no clubbing, ROM intact, no edema. [] Neurologic: Alert and oriented X 3, normal motor function, normal sensory function, no focal deficits noted. [] Psychologic: Flat affect Current Patient Data: Vital Signs: Vital Signs Date Time Temp Pulse Resp B/P (MAP) Pulse Ox O2 Delivery O2 Flow Rate FiO2 01/28/21 12:45 98.1 74 24 134/80 (98) 100 Room Air 98.1 EKG: EKG: [] Radiology/Procedures: Radiology/Procedures: []PROCEDURE: ABDOMEN SUPINE & UPRIGHT Abdomen supine and upright views 01/28/2021. Reason for exam: Abdominal pain and vomiting. Comparison is made with an exam of 01/24/2021. No free air is seen. Gas is present in the stomach and colon. There is no evidence of obstruction. No abnormal masses or gas collections are seen. IMPRESSION: Nonobstructive gas pattern. Electronically signed by: Kishor Gray Jr., MD (01/28/2021 1:44 PM) [id number] DICTATED and SIGNED BY: KISHOR GRAY Jr, MD DATE: 01/28/21 [id number] 0 Course & Med Decision Making: Course & Med Decision Making Pertinent Labs and Imaging studies reviewed. (See chart for details) This is a 35-year-old male patient presented to the ED today complaining of abdominal pain with nausea and vomiting, symptoms for 1-1/2 weeks he states he has had multiple similar episodes previously and has had negative work-ups. See HPI CBC with no acute findings, CMP with potassium of 3.1, patient was given oral potassium replacement. Abdomen supine and upright x-rays were negative for any acute findings. Urine was noted for UTI, patient's urine was tested for STDs. He was given prophylaxis STD treatment. UDS positive for opiates and marijuana use. Patient is also a smoker, I advised him to consider smoking cessation and gave him prescription for nicotine patch. 5 minutes was spent on this discussion Discharge to home, provided GI for follow-up. Jarocho Monge Disclaimer: [place] Disclaimer: This electronic medical record was generated, in whole or in part, using a voice recognition dictation system. Departure Departure Impression: Primary Impression: Cyclic vomiting syndrome Additional Impressions: Hypokalemia UTI (urinary tract infection) Qualified Codes: N39.0 - Urinary tract infection, site not specified Marijuana use Smoking addiction Disposition: DC HOME SELF CARE/HOMELESS Condition: STABLE Referrals: NO PCP (PCP) STACI BANKS MD follow up in 1 week Patient Instructions: Cyclic Vomiting Syndrome, Marijuana Abuse-Brief, Urinary Tract Infection Additional Instructions: You were seen in the emergency room, your urine was noted for infection, please complete your antibiotics. Please consider smoking cessation. Please do not use marijuana, it tends to cause people cyclic vomiting which of the cycles of nausea and vomiting and abdominal pain. Please do not use medicine that is not prescribed to you. Scripts Nicotine (NICODERM CQ 21mg) 1 Each Patch.td24 1 PATCH TP DAILY, #28 PATCH 1 Refill Prov: KAYLI MORTON APRN 01/28/21 Ondansetron (ONDANSETRON ODT) 4 Mg Tab.rapdis 1 TAB PO PRN Q6-8HRS, #16 TAB Prov: KAYLI MORTON APRN 01/28/21 Doxycycline Hyclate (DOXYCYCLINE HYCLATE) 100 Mg Tablet 1 TAB PO BID, #14 TAB Prov: KAYLI MORTON APRN 01/28/21 KAYLI MORTON STABBER Jan 28, 2021 13:23
[2021-01-28 13:31] LABS: CALCIUM 9.6 mg/dL (8.5-10.1); CREATININE 1.2 mg/dL (0.7-1.3); GFR 89.3; POTASSIUM 3.1 mmol/L (3.5-5.1)
[2021-01-28 13:43] LABS: ALBUMIN 4.2 g/dL (3.4-5.0); ALBUMIN/GLOBULIN RATIO 1.1 (1.0-1.7); TOTAL BILIRUBIN 1.1 mg/dL (0.2-1.0)
[2021-01-28 13:46] LABS: RBC,URINE 0 /HPF (0-2); WBC,URINE 20-40 /HPF (0-4)
--- NOTE | 2021-01-28 13:47 | RAD ---
Abdomen supine and upright views 01/28/2021. Reason for exam: Abdominal pain and vomiting. Comparison is made with an exam of 01/24/2021. No free air is seen. Gas is present in the stomach and colon. There is no evidence of obstruction. No abnormal masses or gas collections are seen. IMPRESSION: Nonobstructive gas pattern. Electronically signed by: Bradley Gray Jr., MD (01/28/2021 1:44 PM) [id number]
[2021-01-28 13:48] LABS: BACTERIA,URINE FEW /HPF (0-FEW)
[2021-01-28 14:01] LABS: BARBITURATES NEG (NEG); BENZODIAZEPINES NEG (NEG); CANNABINOIDS POS (NEG); COCAINE NEG (NEG); METHADONE NEG (NEG); OPIATES POS (NEG); PHENCYCLIDINE NEG (NEG)
[2021-01-28 14:02] LABS: AMPHETAMINE/METHAMPHETAMINE NEG (NEG)
[2021-01-28] MEDS ORDERED: cefTRIAXone IV Push 1 GM VIAL. IVP ONE (14:45)
[2021-01-28] MEDS ORDERED: POTASSIUM BICARB 20 MEQ EFFERVESCENT TABLET. PO ONE (14:45)
[2021-01-28] MEDS ORDERED: DOXYCYCLINE HYCLATE 100 MG TABLET PO ONE (14:45)
[2021-01-28] MEDS ORDERED: ONDA4TAB12 PO (14:49)
[2021-01-28] MEDS ORDERED: DOXY100T PO (14:49)
[2021-01-28] MEDS ORDERED: NICO1PAT21 TP (14:49)
[2021-01-28 15:15] VITALS: BP 116/78
== END 2021-01-28 15:42 | disposition home or self-care (01) ==
LOC: ER 12:41
DX: N39.0 Urinary tract infection, site not specified (principal); R11.15 Cyclical vomiting syndrome unrelated to migraine; R10.84 Generalized abdominal pain; E87.6 Hypokalemia; F12.90 Cannabis use, unspecified, uncomplicated; F17.200 Nicotine dependence, unspecified, uncomplicated; Z98.890 Other specified postprocedural states
CPT/HCPCS: 36415; 74021; 80053; 80307; 81001; 83690; 83735; 85025; 87086; 87491; 87591; 96361; 96374; 96375; 99285; G0480; J0696; J2405; J3490; J7030

== ENCOUNTER 2021-02-01 18:24 | Emergency (ER) | payer SELFPAY ==
[~2021-02-01] VITALS: Ht 175.3 cm; Wt 63.0 kg
[~2021-02-01 18:24] MED LIST changes: +DOXY100T PO; +NICO1PAT21 TP
[2021-02-01 19:12] LABS: BILIRUBIN,URINE SMALL (NEG); CLARITY,URINE CLOUDY; COLOR,URINE AMBER; NITRITE,URINE NEGATIVE (NEG); PROTEIN,URINE 30 mg/dL (NEG-TRACE)
[2021-02-01 19:20] LABS: AMPHETAMINE/METHAMPHETAMINE NEG (NEG); BACTERIA,URINE 0 /HPF (0-FEW); BARBITURATES NEG (NEG); BENZODIAZEPINES NEG (NEG); CANNABINOIDS POS (NEG); COCAINE NEG (NEG); METHADONE NEG (NEG); OPIATES NEG (NEG); PHENCYCLIDINE NEG (NEG)
[2021-02-01] MEDS: PROMETHAZINE 12.5 MG TABLET. PO ONE (20:10)
[2021-02-01] MEDS: IV NORMAL SALINE 1000ML BAG 1,000 ML IV ONE (20:11)
[2021-02-01] MEDS: HALOPERIDOL LACTATE 5 MG/ML VIAL. IVP ONE (20:11)
[2021-02-01] MEDS: FAMOTIDINE 20 MG/2 ML VIAL IVP ONE (20:11)
[2021-02-01 20:20] LABS: BASO % 1 % (0-3); EOS % 0 % (0-3); HEMATOCRIT 45.8 % (39.0-53.0); LYMPH # 2.1 x10^3/uL (1.0-4.8); LYMPH % 36 % (24-48); MEAN CORPUSCULAR HEMOGLOBIN 33 pg (25-35); MEAN CORPUSCULAR HGB CONC 35 g/dL (31-37); MEAN CORPUSCULAR VOLUME 95 fL (79-100); MONO # 0.4 x10^3/uL (0.0-1.1); MONO % 7 % (0-9); NEUT # 3.3 x10^3/uL (1.8-7.7); NEUT % 56 % (31-73); PLATELET COUNT 392 x10^3/uL (140-400); RED BLOOD COUNT 4.82 x10^6/uL (4.30-5.70); RED CELL DISTRIBUTION WIDTH 13.1 % (11.5-14.5); WHITE BLOOD COUNT 5.9 x10^3/uL (4.0-11.0)
--- NOTE | 2021-02-01 20:23 | PHYS DOC ---
Past Medical History Past Medical History: STD, Other Additional Past Medical Histor: cyclic vomiting, chlamydia, narcotic abuse Past Surgical History: Other Additional Past Surgical Histo: pilonidal cyst Smoking Status: Light Tobacco Smoker Alcohol Use: None Drug Use: Marijuana General Adult EDM: Chief Complaint: NAUSEA/VOMITING/DIARRHEA HPI: HPI: Patient is a 25 year old male with a history of marijuana use, cyclic vomiting, who presents the ED today complaining of nausea and vomiting that he states is chronic as well as generalized abdominal pain that he reports only occurs when he is vomiting. Symptoms have been going on for weeks. Patient states he has been seen in this ED multiple times. He states he was here 4 days ago and was given prescription for Zofran and other medicines. He states he only filled the prescription for Zofran. He states he never followed up with GI specialist. He states he was seen at [facility] roughly 2 weeks ago for the same complaint and they could not find anything wrong with him from the work up they did. When I asked him if he is using marijuana considering we have told him before this is one of the sources of his chronic nausea and vomiting he states the last time he used marijuana was weeks ago she states right now he is under house arrest and is not allowed to use marijuana. Informed him 4 days ago he was in the ED and was positive for marijuana. He states marijuana last in the system for days Review of Systems: Review of Systems: Constitutional: Denies fever or chills. [] Eyes: Denies change in visual acuity. [] HENT: Denies nasal congestion or sore throat. [] Respiratory: Denies cough or shortness of breath. [] Cardiovascular: Denies chest pain or edema. [] GI: Reports abdominal pain with nausea and vomiting, denies bloody stools or diarrhea. [] : Denies dysuria. [] Musculoskeletal: Denies back pain or joint pain. [] Integument: Denies rash. [] Neurologic: Denies headache, focal weakness or sensory changes. [] Psychiatric: Denies depression or anxiety. [] Heart Score: C/O Chest Pain: N/A Risk Factors: Risk Factors: DM, Current or recent (<one month) smoker, HTN, HLP, family history of CAD, obesity. Risk Scores: Score 0 - 3: 2.5% MACE over next 6 weeks - Discharge Home Score 4 - 6: 20.3% MACE over next 6 weeks - Admit for Clinical Observation Score 7 - 10: 72.7% MACE over next 6 weeks - Early Invasive Strategies Current Medications: Current Medications Medications (Trade) Dose Ordered Sig/Kaushik Start Time Stop Time Status Last Admin Dose Admin Famotidine (Pepcid Vial) 20 mg 1X ONCE 02/01/21 19:30 02/01/21 19:31 DC 02/01/21 20:11 20 MG Haloperidol Lactate (Haldol Inj) 2.5 mg 1X ONCE 02/01/21 19:30 02/01/21 19:31 DC 02/01/21 20:11 2.5 MG Promethazine HCl (Phenergan) 12.5 mg 1X ONCE 02/01/21 19:30 02/01/21 19:31 DC 02/01/21 20:10 12.5 MG Sodium Chloride 1,000 ml @ 1,000 mls/hr 1X ONCE 02/01/21 19:30 02/01/21 20:29 02/01/21 20:11 1,000 MLS/HR Allergies: Allergies: Allergies Coded Allergies Type Severity Reaction Last Updated Verified No Known Drug Allergies 06/10/14 No Physical Exam: PE: Constitutional: Thin appearing patient, no acute distress, non-toxic appearance. [] HENT: Normocephalic, atraumatic, bilateral external ears normal, oropharynx moist, no oral exudates, nose normal. [] Eyes: PERRLA, EOMI, conjunctiva normal, no discharge. [] Neck: Normal range of motion, no tenderness, supple, no stridor. [] Cardiovascular:Heart rate regular rhythm, no murmur [] Lungs & Thorax: Bilateral breath sounds clear to auscultation [] Abdomen: Bowel sounds normal, soft, no tenderness, no masses, no pulsatile masses. [] Skin: Warm, dry, no erythema, no rash. [] Back: No tenderness, no CVA tenderness. [] Extremities: No tenderness, no cyanosis, no clubbing, ROM intact, no edema. [] Neurologic: Alert and oriented X 3, normal motor function, normal sensory function, no focal deficits noted. [] Psychologic: Flat affect Current Patient Data: Labs: Laboratory Tests Test 02/01/21 19:00 Urine Collection Type Unknown Urine Color [place] Urine Clarity Cloudy Urine pH 7.0 (<5.0-8.0) Urine Specific [place] >=1.030 (1.000-1.030) Urine Protein 30 mg/dL (NEG-TRACE) Urine Glucose (UA) Negative mg/dL (NEG) Urine Ketones (Stick) >=80 mg/dL (NEG) Urine Blood Negative (NEG) Urine Nitrite Negative (NEG) Urine Bilirubin Small (NEG) Urine Urobilinogen Dipstick 1.0 mg/dL (0.2 mg/dL) Urine Leukocyte Esterase Small (NEG) Urine RBC 1-2 /HPF (0-2) Urine WBC 5-10 /HPF (0-4) Urine Squamous Epithelial Cells Few /LPF Urine Bacteria 0 /HPF (0-FEW) Urine Mucus Marked /LPF Urine Opiates Screen Neg (NEG) Urine Methadone Screen Neg (NEG) Urine Barbiturates Neg (NEG) Urine Phencyclidine Screen Neg (NEG) Urine Amphetamine/Methamphetamine Neg (NEG) Urine Benzodiazepines Screen Neg (NEG) Urine Cocaine Screen Neg (NEG) Urine Cannabinoids Screen Pos (NEG) Urine Ethyl Alcohol Neg (NEG) Vital Signs: Vital Signs Date Time Temp Pulse Resp B/P (MAP) Pulse Ox O2 Delivery O2 Flow Rate FiO2 02/01/21 18:36 98.0 55 20 127/81 (96) 100 Room Air 98.0 EKG: EKG: [] Radiology/Procedures: Radiology/Procedures: [] Course & Med Decision Making: Course & Med Decision Making Pertinent Labs and Imaging studies reviewed. (See chart for details) This is a 25-year-old male patient presented to the ED today with with nausea and vomiting as well as abdominal pain. This is a chronic condition for this patient from marijuana use though he continues to deny. He is currently under house arrest. He was seen in the ED 4 days ago and was sent home with Zofran. He was positive for chlamydia and was sent home with doxycycline which he states he never filled. He was given Rocephin 4 days ago. He presents today with ongoing symptoms. I talked to patient at length again emphasizing the importance of stopping marijuana use. Emphasized the importance of following up with GI. Emphasized the importance of filling the prescription of doxycycline that he got in taking it for the STDs he has. CBC with no acute findings. UDS positive for marijuana, small amount of leukocytes ketones consistent with dehydration. Potassium 3.0, patient was given potassium replacement in the ED I spoke to patient at length about his symptoms especially the use of marijuana, he continues to deny this being the source of his chronic cyclic vomiting. I continue to encourage him to stop the use of marijuana. I provided him a GI doctor for follow-up again. I provided him prescription for doxycycline again and reminded him he has chlamydia and and needs to take this medicine to completion [place] Disclaimer: [place] Disclaimer: This electronic medical record was generated, in whole or in part, using a voice recognition dictation system. Departure Departure Impression: Primary Impression: Cyclic vomiting syndrome Additional Impressions: Marijuana use UTI (urinary tract infection) Qualified Codes: N39.0 - Urinary tract infection, site not specified Hypokalemia Disposition: HOME / SELF CARE / HOMELESS Condition: STABLE Referrals: UNKNOWN PCP NAME (PCP) STACI BANKS MD Please follow-up as soon as possible Patient Instructions: Cyclic Vomiting Syndrome Additional Instructions: You were evaluated in the emergency room for nausea and vomiting, this is a very common condition for people who use marijuana, we encourage you to consider not using this drug. You tested positive for chlamydia. You tested positive for chlamydia, he got part of the treatment the last time you in the emergency room. We sent prescription for doxycycline to your pharmacy, ensure you complete it. We provided you a polymerization oven tender/GI doctor, contact his office tomorrow morning and set up a follow-up appointment Scripts Hyoscyamine Sulfate (LEVSIN) 0.125 Mg Tablet 1 TAB PO TID, #30 TAB 0 Refills Prov: KAYLI MORTON TEREZA 02/01/21 Doxycycline Hyclate (DOXYCYCLINE HYCLATE) 100 Mg Tablet 1 TAB PO BID, #14 TAB Prov: KAYLI MORTON Asim WILHELMN 02/01/21 Metoclopramide Hcl (REGLAN) 10 Mg Tablet 1 TAB PO TID, #30 TAB 0 Refills before food and bedtime Prov: SELENEKAYLI Asim STARKS 02/01/21 KAYLI MORTON TEREZA Feb 01, 2021 20:23
[2021-02-01 20:30] LABS: ALBUMIN 3.9 g/dL (3.4-5.0); ALBUMIN/GLOBULIN RATIO 1.1 (1.0-1.7); CALCIUM 9.2 mg/dL (8.5-10.1); CREATININE 1.2 mg/dL (0.7-1.3); TOTAL PROTEIN 7.4 g/dL (6.4-8.2)
[2021-02-01 20:31] LABS: GFR 89.3; TOTAL BILIRUBIN 1.1 mg/dL (0.2-1.0)
[2021-02-01] MEDS ORDERED: HYOS0.1264 PO (20:52)
[2021-02-01] MEDS ORDERED: DOXY100T PO (20:52)
[2021-02-01] MEDS ORDERED: METO10TA81 PO (20:52)
[2021-02-01 21:05] VITALS: BP 128/66
[2021-02-01] MEDS: POTASSIUM BICARB 20 MEQ EFFERVESCENT TABLET. PO ONE (21:07)
== END 2021-02-01 21:15 | disposition home or self-care (01) ==
LOC: ER 18:24
DX: N39.0 Urinary tract infection, site not specified (principal); R11.15 Cyclical vomiting syndrome unrelated to migraine; F12.90 Cannabis use, unspecified, uncomplicated; E87.6 Hypokalemia; Z72.0 Tobacco use
CPT/HCPCS: 36415; 80053; 80307; 81001; 83690; 85025; 87086; 96361; 96374; 96375; 99285; J1630; J3490; J7030; Q0169